=== PATIENT | male | born 1990 | race African-American/Black ===

== ENCOUNTER 2023-10-14 09:50 | Emergency (ER) | payer MEDICAID ==
[~2023-10-14] VITALS: Ht 175.3 cm; Wt 69.0 kg
[2023-10-14 09:52] VITALS: O2SAT 99
[2023-10-14 12:30] LABS: BASOPHILS % 0.1 % (0.0-2.0); HEMATOCRIT. 47.7 % (42.0-52.0); HEMOGLOBIN. 15.7 g/dL (14.0-18.0); LYMPHOCYTES % 9.9 % (20.0-50.0); MEAN CORPUSCULAR HEMOGLOBIN 29.7 pg (28.0-32.0); MEAN PLATELET VOLUME 7.5 fl (7.4-10.4); MONOCYTES % 3.1 % (2.0-8.0); NEUTROPHILS % 86.9 % (40.0-76.0); PLATELET 411 x1000/uL (130-400); RED CELL DISTRIBUTION WIDTH 13.9 % (11.6-14.6); WHITE BLOOD COUNT 11.5 x1000/uL (4.5-11.0)
[2023-10-14 12:39] LABS: CHLORIDE 102 mEq/L (98-107); POTASSIUM 4.1 mEq/L (3.5-5.1); SODIUM 137 mEq/L (136-145)
[2023-10-14 12:40] LABS: CARBON DIOXIDE 26 mEq/L (21-32)
[2023-10-14 12:41] LABS: CALCIUM 9.6 mg/dL (8.7-10.4)
[2023-10-14 12:45] LABS: CREATININE 0.8 mg/dL (0.6-1.3); GLUCOSE 142 mg/dL (70-105)
[2023-10-14 12:46] LABS: UREA NITROGEN BLOOD 16 mg/dL (9-23)
[2023-10-14 12:47] LABS: ALANINE AMINOTRANSFERASE 30 IU/L (10-49); ALBUMIN 4.6 g/dL (3.2-4.8); ASPARTATE AMINOTRANSFERASE 31 IU/L (<34)
[2023-10-14 12:48] LABS: BILIRUBIN DIRECT 0.3 mg/dL (<=3.0); BILIRUBIN TOTAL 0.8 mg/dL (0.1-1.0); PROTEIN TOTAL 7.3 g/dL (6.0-8.3)
[2023-10-14] MEDS: ONDANSETRON 4MG ODT PO ONE (13:11)
[2023-10-14 13:12] VITALS: BP 112/65; PULSE 96; RESP 16; TEMP 98
== END 2023-10-14 13:41 | disposition home or self-care (01) ==
LOC: ER 09:50
DX: F11.23 Opioid dependence with withdrawal (principal)
CPT/HCPCS: 99283; 80076; 80048; 83690; 85025; 36415; Q0162